=== PATIENT | male | born 1960 | race Caucasian/White ===

== ENCOUNTER 2023-07-11 10:16 | Emergency (ER) | payer OTHER, SELFPAY ==
[2023-07-11] VITALS (9 sets, daily range): BP systolic 127–141; BP diastolic 71–75; PULSE 63–71; RESP 14–21; TEMP 36.5; O2SAT 97–99; BMI 24.4
--- NOTE | 2023-07-11 | XR_ITS ---
Patient: OLGA Baez HOLTER Facility:?[facility] Patient ID:?[id number] Site Patient ID:?[id number]. Site :?[id number] Study:?XRay-Chest 2 view-07/11/2023 11:58:46 AM Ordering Physician:Cliff Kirby Final Report: INDICATION: Chest pain. TECHNIQUE: Chest 2 views. COMPARISON: None. FINDINGS: No focal consolidation, pleural effusion, or pneumothorax. Normal heart size and pulmonary vascularity. The bones are unremarkable. IMPRESSION: No acute cardiopulmonary findings. Dictated by Lisa Leon MD @ 07/11/2023 1:18:55 PM Signed by:?Lisa Leon MD @07/11/2023 1:18:55 PM (Electronic Signature)
[2023-07-11] MEDS: 0.9 % SODIUM CHLORIDE 1000 ml 1,000 ML 6000 ML IV (10:51)
[2023-07-11 12:21] LABS: D Dimer Quantitative* 0.27 ug/ml (0.00-0.50)
[2023-07-11 12:23] LABS: SARS PCR* Negative SARS-CoV-2 (Negative)
[2023-07-11 13:30] LABS: Anion Gap 12 mEq/L (7-15); Carbon Dioxide* 26 mmol/L (20-32); Chloride* 99 mmol/L (96-114); Potassium* 3.2 mmol/L (3.6-5.1); Sodium* 137 mmol/L (135-149)
[2023-07-11 13:31] LABS: Albumin* 4.6 g/dL (3.3-5.0); Blood Urea Nitrogen* 13 mg/dL (7-30); Calcium* 9.9 mg/dL (8.4-10.6); Est. Creatinine Clearance* 80.53; Estimated Glomerular Filt Rate 85 ml/min; Glucose* 119 mg/dL (60-115); Total Protein* 7.7 g/dL (6.0-8.3)
[2023-07-11 13:32] LABS: Alanine Aminotransferase* 55 U/L (4-50); Alkaline Phosphatase* 95 U/L (40-150); Aspartate Amino Transferase* 45 U/L (12-35); Bilirubin Direct* 0.2 mg/dL (0.0-0.5); Bilirubin Total* 1.4 mg/dL (0.1-1.5); C Reactive Protein* 4.2 mg/dL (0.5-1.0)
[2023-07-11 13:37] LABS: Eosinophils Percent Auto 0.4 % (0.0-7.0); Hematocrit 39.2 % (37.0-53.0); Hemoglobin* 14.2 gm/dL (13.5-17.5); Lymphocytes Percent Auto 10.6 % (20-44); Mean Corpuscular HGB Conc 36 gm/dL (32-36); Mean Corpuscular Hemoglobin 34 pg (26-34); Mean Corpuscular Volume 94 fL (80-100); Monocytes Percent Auto 11.4 % (0.0-11.0); Neutrophils Percent Auto 77.2 % (42.0-72.0); Platelet Count* 119 K/uL (140-440); Red Blood Count 4.16 m/uL (4.30-5.90); White Blood Count* 7.71 K/uL (4.50-11.00)
[2023-07-11 13:38] LABS: Immature Granulocytes Pct Auto 0.4 %; Slide Review Reflex No
--- NOTE | 2023-07-11 13:49 | ED.GENADULT ---
HPI - General Adult General Date Seen: 07/11/23 Chief complaint: Chest Pain Stated complaint: chest pain Time Seen by Provider: 07/11/23 11:04 Source: patient Mode of arrival: ambulatory Limitations: no limitations History of Present Illness HPI narrative: Patient is a 62-year-old male who presents for evaluation of central chest pain which she says started around 4:00 a.m. yesterday while at rest. He describes it as a dull pain, mild, nonradiating. He says he was stung by a couple of ground bees the day before, does not know if it is related. He notes that it is worse with deep breath, it has improved since yesterday although it is not gone completely away. It also feels somewhat worse when he lays down. Not worse with exertion. Denies similar previous pain. He has not had severe shortness of breath, has had a little bit of a cough and has noted some congestion in his throat. He has not had a fever. Denies lower extremity swelling or pain. Has not had any nausea or vomiting, no abdominal pain. He does note that he drinks regularly, acknowledges that he drinks more than he should. He smokes marijuana on occasion. He has a history of hypertension and high cholesterol, denies coronary artery disease, COPD, asthma or other significant medical history. He has a grandfather and a couple of uncles with heart disease, no primary relatives with heart disease. Related Data Home Medications Medication Instructions Recorded Confirmed amlodipine 10 mg tablet 10 mg PO DAILY 07/11/23 07/11/23 losartan 100 1 tab PO DAILY 07/11/23 07/11/23 mg-hydrochlorothiazide 25 mg tablet omeprazole 20 mg capsule,delayed 20 mg PO DAILY 07/11/23 07/11/23 release rosuvastatin 20 mg tablet 20 mg PO QPM 07/11/23 07/11/23 Allergies Allergy/AdvReac Type Severity Reaction Status Date / Time No Known Drug Allergies Allergy Verified 07/11/23 10:26 Review of Systems Status of ROS: Reports: 10 or more systems reviewed and unremarkable except as noted in History and below Exam Narrative: Exam Narrative: Vital signs as noted above. In general, an alert, well-appearing patient. Head: Normocephalic, atraumatic. Eyes: Pupils are equal reactive. Extraocular movements are full. Conjunctivae are normal. ENT: Mucous membranes are moist. Throat is normal. Neck: Supple without lymphadenopathy. Heart: Regular rate and rhythm. No murmur or rub. Lungs: Clear bilaterally. No increased work of breathing, crackles or wheezes. Abdomen: Soft and nontender. No organomegaly. Extremities: Well perfused. No edema. No calf tenderness. Pulses intact. Neurologic: Patient is alert and oriented to person and place. Speech is fluent. Face is symmetric. Moves all extremities equally. Affect: Normal. Skin: Warm and dry. Well perfused. Const: Vital Signs, click to edit/add: Vital Signs - 24 hr 07/11/23 10:27 Temperature 97.7 F Pulse Rate [Right Pulse Oximeter] 71 Respiratory Rate 18 Blood Pressure [Ri ght Upper Arm] 135/75 Pulse Oximetry 97 Oxygen Delivery Me thod Room Air Course Course Hospital Course: An EKG here showed normal sinus rhythm, ventricular rate of 60 beats per minute. No acute ST segment changes, T-waves are unremarkable. Initial labs notable for normal white blood cell count and hemoglobin. Platelets are little low at 119,000 hundred nineteen thousand, this may be related to alcohol use. His D-dimer was normal at 0.27, lower ring my suspicion for PE. His metabolic panel was notable for a mildly low potassium of 3.2, I think this is incidental and unlikely to be related to his symptoms. Otherwise metabolic panel was normal. LFT showed an AST of 45 and an ALT of 55, bilirubin and alk-phos were normal. CRP was slightly elevated at 4.2. EKG did not show any ST elevation or FL depression suggestive of pericarditis. His COVID was negative. I was not able to review his chest x-ray myself as our network was down, but the radiology read of his chest x-ray was negative. Troponin was 0. Given that he has had symptoms for almost 24 hours at this point, I think a single troponin is adequate to rule out acute coronary syndrome. My suspicion of his symptoms being related to coronary artery disease is relatively low given the duration with a negative troponin. Etiology of his symptoms is unclear. It is possible that this could be related to esophagitis/GERD given his heavy alcohol use, and I did recommend that he abstain from alcohol, consider PPI and see if this is helpful for him. I would like him to see his primary Vital Signs Vital signs: Initial Vital Signs Temperature 97.7 F 08/28/23 10:27 Temperature Source Temporal Artery Scan 07/11/23 10:27 Pulse Rate 71 07/11/23 10:27 Respiratory Rate 18 07/11/23 10:27 Blood Pressure 135/75 07/11/23 10:27 Blood Pressure Mean 95 07/11/23 10:27 Blood Pressure Position Sitting 07/11/23 10:27 Pulse Oximetry 97 07/11/23 10:27 Oxygen Delivery Method Room Air 07/11/23 10:27 Vital Signs Temperature 97.7 F 07/11/23 10:27 Pulse Rate 71 07/11/23 10:27 Respiratory Rate 18 07/11/23 10:27 Blood Pressure 135/75 07/11/23 10:27 Pulse Oximetry 97 07/11/23 10:27 Oxygen Delivery Method Room Air 07/11/23 10:27 Temperature 97.7 F 07/11/23 10:27 Pulse Rate 71 07/11/23 10:27 Respiratory Rate 18 07/11/23 10:27 Blood Pressure 135/75 07/11/23 10:27 Pulse Oximetry 97 07/11/23 10:27 Oxygen Delivery Method Room Air 07/11/23 10:27 Medical Decision Making Lab Data Labs: Lab Results 07/11/23 Range/Units 10:38 WBC 7.71 (4.50-11.00) K/uL RBC 4.16 L (4.30-5.90) m/uL Hgb 14.2 (13.5-17.5) gm/dL Hct 39.2 (37.0-53.0) % MCV 94 (80-100) fL MCH 34 (26-34) pg MCHC 36 (32-36) gm/dL RDW Coeff of Wan 12.0 (11.5-15.5) % Plt Count 119 L (140-440) K/uL Neut % (Auto) 77.2 H (42.0-72.0) % Lymph % (Auto) 10.6 L (20-44) % Tripp % (Auto) 11.4 H (0.0-11.0) % Eos % (Auto) 0.4 (0.0-7.0) % Baso % (Auto) 0.0 (0.0-3.0) % Neut # (Auto) 6.00 (1.7-7.0) K/uL Lymph # (Auto) 0.80 L (0.90-2.90) K/uL Tripp # (Auto) 0.90 (0.00-0.90) K/UL Eos # (Auto) 0.00 (0.00-0.50) K/uL Baso # (Auto) 0.00 (0.00-0.30) K/uL Abs Immat Gran (auto) 0.00 (0.00-0.30) K/uL Imm/Tot Granulo (auto) 0.4 % D-Dimer Quant (PE/DVT) 0.27 (0.00-0.50) ug/ml Sodium 137 (135-149) mmol/L Potassium 3.2 L (3.6-5.1) mmol/L Chloride 99 (96-114) mmol/L Carbon Dioxide 26 (20-32) mmol/L Anion Gap 12 (7-15) mEq/L BUN 13 (7-30) mg/dL Creatinine 1.0 (0.5-1.5) mg/dL Estimated Creat Clear 80.53 Estimated GFR 85 ml/min Glucose 119 H (60-115) mg/dL Calcium 9.9 (8.4-10.6) mg/dL Total Bilirubin 1.4 (0.1-1.5) mg/dL Direct Bilirubin 0.2 (0.0-0.5) mg/dL AST 45 H (12-35) U/L ALT 55 H (4-50) U/L Alkaline Phosphatase 95 (40-150) U/L C-Reactive Protein 4.2 H (0.5-1.0) mg/dL Total Protein 7.7 (6.0-8.3) g/dL Albumin 4.6 (3.3-5.0) g/dL SARS-CoV-2 (PCR) Negative SARS-CoV-2 (Negative) Discharge Plan Discharge Clinical Impression: Chest pain Patient Disposition: Home, Self-Care Condition: Stable Instructions: Chest Pain (DC) Additional Instructions: Return for worsening or new symptoms such as severe pain, difficulty breathing, fevers, vomiting etcetera. I would recommend avoidance of alcohol for now, consider protein pump inhibitor. Follow up with primary care in the next week for recheck and discussion of need for further evaluation. Prescriptions: No Action losartan-hydrochlorothiazide 100-25 mg tablet 1 tab PO DAILY amlodipine 10 mg tablet 10 mg PO DAILY omeprazole 20 mg capsule,delayed release(DR/EC) 20 mg PO DAILY rosuvastatin 20 mg tablet 20 mg PO QPM Stand Alone Forms: The Daily Caller Info Instructions
--- NOTE | 2023-07-11 14:11 | ED.NURSE ---
1332: computers were down, pt dc'd, given verbal DC by dr. fagan. iv dc'd
== END 2023-07-11 13:32 | disposition home or self-care (01) ==
LOC: ED 13:54
PROVIDERS: Emergency Provider Emergency Medicine; PCP Student in an Organized Health Care Education/Training Program
DX: R07.9 Chest pain, unspecified (principal)
CPT/HCPCS: 36415; 71046; 80048; 80076; 84484; 85025; 85379; 86140; 87635; 93005; 99284; 99285; J7030